=== PATIENT | male | born 1965 | race Hispanic/Latino ===

== ENCOUNTER 2017-06-04 16:36 | Emergency (ER) | payer BC ==
[~2017-06-04] VITALS: Ht 165.1 cm; Wt 87.1 kg
[2017-06-04] MEDS ORDERED: BACITRACIN ZINC 0.9GM TP ONE (17:15)
[2017-06-04] MEDS ORDERED: SILVER SULFADIAZINE 50GM CREAM TOP STA (17:16)
== END 2017-06-04 17:50 | disposition home or self-care (01) ==
LOC: ER 16:42
PROC: 2W21X4Z Dressing of Face using Bandage (ICD-10-PCS; principal; 2017-06-04)
PROC: 2W2BX4Z Dressing of Left Upper Arm using Bandage (ICD-10-PCS; 2017-06-04)
DX: T20.16XA Burn of first degree of forehead and cheek, initial encounter (principal); T20.13XA Burn of first degree of chin, initial encounter; T22.112A Burn of first degree of left forearm, initial encounter; T23.172A Burn of first degree of left wrist, initial encounter; T23.102A Burn of first degree of left hand, unspecified site, initial encounter; X03.8XXA Other exposure to controlled fire, not in building or structure, initial encounter; Y92.007 Garden or yard of unspecified non-institutional (private) residence as the place of occurrence of the external cause
CPT/HCPCS: 99283